=== PATIENT | male | born 1975 | race Caucasian/White ===

== ENCOUNTER 2021-10-08 09:50 | Outpatient (CLI) | payer SELFPAY | END 2021-10-08 09:51 | disposition EMS.NT | LOC: EMS 09:50 | DX: M25.511 Pain in right shoulder (principal); R20.0 Anesthesia of skin; V53.6XXA Passenger in pick-up truck or van injured in collision with car, pick-up truck or van in traffic accident, initial encounter; Y92.413 State road as the place of occurrence of the external cause ==

== ENCOUNTER 2021-10-25 14:14 | Outpatient (CLI) | payer OTHER ==
--- NOTE | 2021-10-25 16:57 | XRAY Report ---
PROCEDURE: Lumbar Spine 2 View INDICATIONS: CERVICAL,THORACIC LUMBAR SPRAIN TECHNIQUE: 3 views of the lumbar spine were acquired. COMPARISON: None. FINDINGS: Moderate thoracolumbar levoscoliosis with a Roland angle of approximately 24 degrees centered at L1-L2. There is approximately 4 mm retrolisthesis of L4-L5 and 5 mm retrolisthesis of L1 on L2. Vertebral b phong heights maintained. No suspicious lesion. Although not entirely definitive there is possible unilateral or even bilateral pars defects at L4. At every level in the lumbar spine, to varying degrees, there is disc height loss with degenerative e ndplate change and facet hypertrophy. There is likely moderate to severe neural foraminal narrowing a t L4-L5 and possibly at L1-L2. Mild osteoarthritic changes in the inferior sacroiliac joints. IMPRESSION: Overall moderate to severe degenerative changes in the lumbar spine with moderate levoscoliosis. Multilevel listhesis. Possible L4 pars defect(s). Advanced imaging recommended. Reviewed by: Bob Lopes MD on 10/25/2021 4:55 PM PDT Approved by: Bob Lopes MD on 10/25/2021 4:55 PM PDT Station ID: [id number]
--- NOTE | 2021-10-25 17:16 | XRAY Report ---
PROCEDURE: Cervical Spine 2 View INDICATIONS: CERVICAL,THORACIC LUMBAR/SACRAL SPRAIN TECHNIQUE: 4 view(s) of the cervical spine were acquired. COMPARISON: None. FINDINGS: Bones: No fractures or dislocations to the C7-T1 level. Straightening of normal cervical lordosis is seen. Loss of disc height, degenerative endplate changes and prominent anterior and dorsal disc oste ophyte complex formation at C4-5 through C6-7 levels are seen. The lateral masses of C1 appear intac t on the odontoid view. No suspicious bony lesions. Soft tissues: No prevertebral soft tissue swelling. IMPRESSION: Degenerative disc disease at C4-5 through C6-7 levels. No acute fracture or dislocation. Reviewed by: Nithin Hays MD on 10/25/2021 5:14 PM PDT Approved by: Nithin Hays MD on 10/25/2021 5:14 PM PDT Station ID: [id number]
--- NOTE | 2021-10-25 17:26 | XRAY Report ---
PROCEDURE: Thoracic Spine 2 View INDICATIONS: CERVICAL,THORACIC LUMBAR SPRAIN TECHNIQUE: 2 views of the thoracic spine were acquired. COMPARISON: None. FINDINGS: Bones: No fractures or dislocations on the 2 given images. Mild rightward scoliosis. Degenerative d isc height loss and mild endplate spurs in the midthoracic spine. No suspicious bony lesions. 12 bryson rs of ribs are noted, and appear intact where visualized. Soft tissues: No paravertebral stripe thickening. IMPRESSION: Mild degenerative changes in the midthoracic spine. Reviewed by: Delphine Mao MD on 10/25/2021 5:25 PM PDT Approved by: Delphine Mao MD on 10/25/2021 5:25 PM PDT Station ID: [id number]
== END 2021-10-25 14:15 | disposition home or self-care (01) ==
LOC: DI 14:14
DX: M50.321 Other cervical disc degeneration at C4-C5 level (principal); M47.814 Spondylosis without myelopathy or radiculopathy, thoracic region; M51.34 Other intervertebral disc degeneration, thoracic region; M47.816 Spondylosis without myelopathy or radiculopathy, lumbar region; M51.36 Other intervertebral disc degeneration, lumbar region; M43.16 Spondylolisthesis, lumbar region